=== PATIENT | female | born 1960 | race Hispanic/Latino ===

== ENCOUNTER 2019-05-21 11:13 | Emergency (ER) | payer BC ==
[2019-05-21] MEDS ORDERED: ACETAMINOPHEN 325 MG TAB ONE (12:33)
[2019-05-21] MEDS ORDERED: OCTYL 2-CYANOACRYLATE 1 EACH TP ONE (12:34)
== END 2019-05-21 13:15 | disposition home or self-care (01) ==
LOC: EDH 11:13
DX: S61.216A Laceration without foreign body of right little finger without damage to nail, initial encounter (principal); E11.9 Type 2 diabetes mellitus without complications; W25.XXXA Contact with sharp glass, initial encounter; Y93.G3 Activity, cooking and baking; Y92.89 Other specified places as the place of occurrence of the external cause; Y99.8 Other external cause status
CPT/HCPCS: 12001; 73130